=== PATIENT | male | born 1970 ===

== ENCOUNTER 2018-01-29 10:19 | Inpatient (IN) | payer BC ==
[2018-01-29] VITALS (510 sets, daily range): BP systolic 116–147; BP diastolic 74–108; PULSE 56–98; TEMP 97.6–98.2; O2SAT 92–100
[~2018-01-29] VITALS: Ht 188 cm; Wt 96.7 kg
[2018-01-29] MEDS ORDERED: CELEBREX 200MG200 MG PO (11:58)
[2018-01-30] VITALS (576 sets, daily range): BP systolic 92–109; BP diastolic 63–84; PULSE 88–101; TEMP 97.8–97.9; O2SAT 71–100
[2018-01-30 05:53] LABS: BASO % 0.3 % (0.0-2.0); EOS # 0.1 (0.0-0.7); EOS % 0.6 % (0-4.0); GRAN # 7.5 (1.4-6.5); GRAN % 78.4 % (42.2-75.2); HEMATOCRIT 37.6 % (42.0-52.0); HEMOGLOBIN 13.2 g/dl (13.5-18.0); LYMPH # 1.1 (1.2-3.4); LYMPH % 11.6 % (20.0-51.0); MEAN CELL VOLUME 86 fl (80.0-100.0); MEAN CORPUSCULAR HEMOGLOBIN 30 pg (27.0-31.0); MEAN CORPUSCULAR HGB CONC 35 g/dl (33.0-37.0); MEAN PLATELET VOLUME 10.6 fl (7.4-10.4); MONO # 0.8 (0.1-0.6); MONO % 8.7 % (1.7-9.3); PLATELET COUNT 254 K/mm3 (130-400); RED BLOOD COUNT 4.37 M/mm3 (4.20-5.60); REDCELL DISTRIBUTION WIDTH-CV 12.3 % (11.5-14.5)
[2018-01-30 06:08] LABS: CALCIUM 8.5 mg/dL (8.4-10.2); CREATININE, serum 0.87 mg/dL (0.66-1.25); POTASSIUM 3.9 mmol/L (3.4-5.0)
[2018-01-30] MEDS ORDERED: LIPITOR 80MG80 MG PO (10:17)
[2018-01-30] MEDS ORDERED: BRILINTA90 MG PO (10:17)
[2018-01-30] MEDS ORDERED: TOPROL XL 50MG50 MG PO (10:18)
[2018-01-30] MEDS ORDERED: ASPIRIN E.C. 8181 MG PO (10:18)
[2018-01-30] MEDS ORDERED: NITROSTAT0.4 MG/TAB SL (10:19)
== END 2018-01-30 12:03 | disposition home or self-care (01) | DRG 246 ==
LOC: IMCU 10:19 → ICU 11:41
PROC: 027237Z Dilation of Coronary Artery, Three Arteries with Four or More Drug-eluting Intraluminal Devices, Percutaneous Approach (ICD-10-PCS; principal; 2018-01-29)
DX: I21.4 Non-ST elevation (NSTEMI) myocardial infarction (principal); E78.5 Hyperlipidemia, unspecified; Z82.49 Family history of ischemic heart disease and other diseases of the circulatory system
CPT/HCPCS: 99223-AI; 99239; C9600; C9601; J1650; J2250; J3010; Q9967